=== PATIENT | male | born 1980 | race Caucasian/White ===

== ENCOUNTER → 2020-02-25 | Outpatient (CLI) | payer BC ==
--- NOTE | 2020-02-25 15:57 | DIREP ---
PROCEDURE:XRAY SPINE LUMBAR 2-3 VWS COMPARISON:None. INDICATIONS:LOW BACK PAIN FINDINGS: ALIGNMENT:No significant scoliosis. Normal lumbar lordosis. Vertebral body alignment is maintained. VERTEBRAE:No compression deformity or acute fracture. DISK SPACES:Mild disc space narrowing at L4-L5 and L5-S1. Mild anterior spondylosis at T11-T12. SPONDYLOLISTHESIS:None. SACROILIAC JOINTS:Unremarkable. CONCLUSION: 1. No acute osseous abnormality or vertebral body malalignment. 2. Low-grade degenerative disc disease within the lower lumbar spine with additional low-grade degenerative changes of the imaged lower thoracic spine. Dictated by: Dg Culver M.D. On 02/25/2020 at 03:54 PM
--- NOTE | 2020-02-25 15:59 | DIREP ---
PROCEDURE:XR SPINE CERVICAL 2 OR 3 VIEWS COMPARISON:None. INDICATIONS:NECK PAIN FINDINGS: ALIGNMENT:The dens and lateral masses appear appropriately aligned on the dedicated odontoid view. The dens appears intact. Straightening of the normal cervical lordosis may be positional or related to spasm. Vertebral body alignment is maintained. Facet joints appear intact. VERTEBRAE:No compression deformity or acute fracture identified. DISK SPACES:Disc spaces appear relatively preserved. CERVICAL RIBS:None. OTHER:No prevertebral soft tissue thickening. CONCLUSION: 1. No acute osseous abnormality or vertebral body malalignment. Straightening of the normal cervical lordosis may be positional or related to spasm. 2. Disc spaces appear preserved. Dictated by: Dg Culver M.D. On 02/25/2020 at 03:56 PM
== END | disposition home or self-care (01) ==
LOC: RAD 15:13
PROVIDERS: ATTEND Chiropractor
DX: M47.816 Spondylosis without myelopathy or radiculopathy, lumbar region (principal); M54.5 Low back pain; M54.2 Cervicalgia
CPT/HCPCS: 72040; 72100